=== PATIENT | male | born 1985 | race Caucasian/White ===

== ENCOUNTER 2021-07-24 22:07 | Emergency (ER) | payer OTHER | END 2021-07-24 22:35 | disposition home or self-care (01) | LOC: ER1 22:07 | DX: U07.1 COVID-19 (principal) | CPT/HCPCS: 99283; U0003 ==

== ENCOUNTER 2021-07-31 14:46 | Emergency (ER) | payer OTHER ==
[~2021-07-31] VITALS: Ht 177.8 cm; Wt 95.3 kg
[2021-07-31] MEDS ORDERED: TESSALON PERLE100 MG PO (16:29)
== END 2021-07-31 17:40 | disposition home or self-care (01) ==
LOC: ER1 14:46
DX: U07.1 COVID-19 (principal); Z23 Encounter for immunization
CPT/HCPCS: 71045; 99283; M0243